=== PATIENT | male | born 1955 | race Caucasian/White ===

== ENCOUNTER 2017-11-07 09:58 | Emergency (ER) | payer OTHER | END 2017-11-07 11:34 | disposition home or self-care (01) | LOC: ERS 09:58 | DX: M62.830 Muscle spasm of back (principal); I10 Essential (primary) hypertension; M19.90 Unspecified osteoarthritis, unspecified site; F31.9 Bipolar disorder, unspecified; Z87.891 Personal history of nicotine dependence | CPT/HCPCS: 99283 ==

== ENCOUNTER 2017-12-19 11:02 | Emergency (ER) | payer OTHER | END 2017-12-19 11:34 | disposition home or self-care (01) | LOC: ERS 11:02 | DX: M10.9 Gout, unspecified (principal); I10 Essential (primary) hypertension; F31.9 Bipolar disorder, unspecified; Z87.891 Personal history of nicotine dependence | CPT/HCPCS: 99283 ==

== ENCOUNTER 2018-01-09 17:10 | Outpatient (CLI) | payer OTHER | END 2018-01-09 17:11 | disposition home or self-care (01) | LOC: BICRAD 17:10 | PROVIDERS: ATTEND Internal Medicine Hematology & Oncology | DX: M25.561 Pain in right knee (principal) ==

== ENCOUNTER 2018-03-13 12:56 | Emergency (ER) | payer OTHER | END 2018-03-13 13:45 | disposition home or self-care (01) | LOC: ERS 12:56 | DX: L02.811 Cutaneous abscess of head [any part, except face] (principal); M10.9 Gout, unspecified; I10 Essential (primary) hypertension; M19.90 Unspecified osteoarthritis, unspecified site; F31.9 Bipolar disorder, unspecified; Z85.46 Personal history of malignant neoplasm of prostate; Z85.828 Personal history of other malignant neoplasm of skin; Z87.891 Personal history of nicotine dependence | CPT/HCPCS: 10060 ==

== ENCOUNTER 2019-04-10 10:39 | Emergency (ER) | payer OTHER ==
--- NOTE | 2019-04-10 11:13 | RAD ---
LEFT ELBOW 4 VIEWS: HISTORY: Left elbow pain COMPARISON: 02/26/2015 FINDINGS: Minimal degenerative changes are present. No acute fracture, dislocation or bony destruction is ident ified.
[2019-04-10] MEDS ORDERED: Ketorolac Tromethamine 30 MG/ML VIAL ONE (11:23)
== END 2019-04-10 11:41 | disposition home or self-care (01) ==
LOC: ERS 10:39
DX: M77.12 Lateral epicondylitis, left elbow (principal); M10.9 Gout, unspecified; I10 Essential (primary) hypertension; M19.90 Unspecified osteoarthritis, unspecified site; Z87.891 Personal history of nicotine dependence
CPT/HCPCS: 96372; J1885

== ENCOUNTER 2019-08-19 16:36 | Emergency (ER) | payer OTHER ==
[2019-08-19] MEDS ORDERED: HYDROcodone/Acetaminophen 5/325 mg Tablet ONE (17:05)
== END 2019-08-19 17:15 | disposition home or self-care (01) ==
LOC: ERS 16:36
DX: M10.9 Gout, unspecified (principal); I10 Essential (primary) hypertension; M19.90 Unspecified osteoarthritis, unspecified site; F31.9 Bipolar disorder, unspecified; Z87.891 Personal history of nicotine dependence
CPT/HCPCS: 99283

== ENCOUNTER 2019-09-03 14:44 | Emergency (ER) | payer OTHER ==
--- NOTE | 2019-09-03 16:36 | RAD ---
EXAM: 4 views of the right knee HISTORY: Knee pain COMPARISON: None FINDINGS: No knee effusion is seen. There is no evidence of acute fracture or dislocation. No signifi cant degenerative changes are seen. No soft tissue swelling is present. IMPRESSION: No evidence of acute osseous abnormality.
== END 2019-09-03 17:50 | disposition home or self-care (01) ==
LOC: ERS 14:44
DX: M10.9 Gout, unspecified (principal); I10 Essential (primary) hypertension; M19.90 Unspecified osteoarthritis, unspecified site; F31.9 Bipolar disorder, unspecified; Z87.891 Personal history of nicotine dependence; Z85.46 Personal history of malignant neoplasm of prostate; Z85.830 Personal history of malignant neoplasm of bone
CPT/HCPCS: 84550

== ENCOUNTER 2020-10-21 10:35 | Outpatient (CLI) | payer OTHER ==
--- NOTE | 2020-10-21 11:13 | ULT ---
GALLBLADDER ULTRASOUND: HISTORY: Hepatitis C. FINDINGS: Liver size upper normal measured at 17 cm. The liver has a normal sonographic appearance. Gallbladd er appears normal with no evidence of gallstones. The common bile duct is normal caliber which measu red at 3 mm. The right kidney is imaged and appears unremarkable. The pancreas is partially imaged and appears unremarkable as visualized. IMPRESSION: Unremarkable right upper quadrant ultrasound. POS: OFF
== END 2020-10-21 10:36 | disposition home or self-care (01) ==
LOC: BICULT 10:35
PROVIDERS: ATTEND Hospitalist
DX: B18.2 Chronic viral hepatitis C (principal); R16.0 Hepatomegaly, not elsewhere classified
CPT/HCPCS: 76705

== ENCOUNTER 2021-02-23 13:21 | Outpatient (CLI) | payer OTHER, MEDICARE | END 2021-02-23 13:22 | disposition home or self-care (01) | LOC: BICULT 13:21 | PROVIDERS: ATTEND Physician Assistant Medical | DX: B18.2 Chronic viral hepatitis C (principal) | CPT/HCPCS: 76705 ==

== ENCOUNTER 2023-04-15 09:42 | Outpatient (CLI) | payer OTHER, MEDICAID | END 2023-04-15 09:43 | disposition home or self-care (01) | LOC: ULT 09:42 | PROVIDERS: ATTEND Family Medicine | DX: Z13.6 Encounter for screening for cardiovascular disorders (principal) | CPT/HCPCS: 76775 ==

== ENCOUNTER 2025-10-09 14:42 | Emergency (ER) | payer OTHER ==
[2025-10-09] MEDS ORDERED: Ketorolac Tromethamine 30 MG (1 mL) VIAL ONE (15:47)
[2025-10-09] MEDS ORDERED: Dexamethasone 10 MG/ML VIAL ONE (15:47)
== END 2025-10-09 16:00 | disposition home or self-care (01) ==
LOC: ERS 14:42
DX: M54.2 Cervicalgia (principal); G89.29 Other chronic pain; I10 Essential (primary) hypertension; Z87.891 Personal history of nicotine dependence
CPT/HCPCS: J1100; J1885; 96372; 99282